=== PATIENT | male | born 1940 | race Caucasian/White ===

== ENCOUNTER 2018-03-31 17:15 | Emergency (ER) | payer OTHER ==
[2018-03-31 17:25] VITALS: TEMP 97.8
--- NOTE | 2018-03-31 17:50 | PDOC ---
Attending Attestation - Resident Resident Name: Marlin Jack - ED Attending Attestation I have performed the following: I have examined & evaluated the patient, The case was reviewed & discussed with the resident, I agree w/resident's findings & plan, Exceptions are as noted - HPI HPI: 04/01/18 09:49 Patient was begun on an alpha earl today by the [facility] for prostatic hypertrophy. He was not having any increase in urinary symptoms, but the medication was begun because the doctor felt his prostate was enlarging. After taking the medication, he experienced an episode of orthostatic hypotension, fell and struck head, no loss of consciousness. He is now asymptomatic. He denies headache, visual or focal neurologic symptoms, unsteadiness of gait. He denies chest pain shortness of breath abdominal pain nausea vomiting diarrhea dizziness or lightheadedness or vertigo. No syncope in the past. Additional factor was that the patient was using the bathroom at the time of this orthostatic episode. - Physicial Exam PE: 04/01/18 09:50 Physical exam: Alert and oriented well-developed well-nourished no acute distress cheerful and cooperative Afebrile vital signs normal Superficial contusion over the right forehead. No hematoma, depression, or other skull defect. PERRLA, fundi benign with sharp disc margins and good central venous pulsations. ENT clear Neck without tenderness or deformity, full range of motion without pain Chest clear with full breath sounds bilaterally, no rib cage or chest wall deformity or tenderness CV regular without murmur rub or gallop pulses full and symmetric no JVD or edema no bradycardia or tachycardia Abdomen soft nontender without mass or organomegaly. No CVAT No pelvic or spine deformity or tenderness Extremities no visible or palpable trauma Neurological C2 to 12 intact. Strength full and symmetric. No focal sensory or motor deficits. Cerebellum intact. Gait stable and unimpaired. - Medical Decision Making 04/01/18 09:52 Impression: Orthostatic hypotension, vasovagal syncope, probably due to initiation of alpha earl Plan: CT of the head and neck are negative. Patient's neurological status is intact. He will stop the medication and follow-up with his doctor. Fully ambulatory and in no distress upon discharge to follow-up as directed
[2018-03-31] MEDS ORDERED: SODIUM CHLORIDE 1,000 ML IV STA (18:03)
[2018-03-31 18:04] VITALS: BMI 27.8
--- NOTE | 2018-03-31 18:15 | PDOC ---
History of Present Illness - General Chief Complaint: Syncope/Near Syncope Stated Complaint: syncope Time Seen by Provider: 03/31/18 17:36 Past History - Past Medical History Allergies/Adverse Reactions: Allergies Allergy/AdvReac Type Severity Reaction Status Date / Time No Known Drug Allergies Allergy Verified 03/31/18 17:54 Home Medications: Ambulatory Orders Albuterol Sulfate [Proair Respiclick] 90 mcg IH PRN PRN 03/31/18 Aspirin 80 mg PO DAILY 03/31/18 Chlorthalidone 25 mg PO AM 03/31/18 Diphenhydramine HCl [Benadryl -] 0 mg PO PRN PRN 03/31/18 Lactase [Fast Acting Lactase] 9,000 unit PO ASDIR 03/31/18 Levothyroxine [Synthroid -] 175 mcg PO DAILY 03/31/18 Metoprolol Succinate [Toprol Xl] 25 mg PO DAILY 03/31/18 Omeprazole 20 mg PO BID 03/31/18 Simvastatin 10 mg PO HS 03/31/18 Tiotropium [place] [Spiriva] 18 mcg IH DAILY 03/31/18 Cardiac Disorders: Yes (CARDIO SPASM WITH HTN) COPD: Yes GI Disorders: Yes (GERD,HIATAL HERNIA,LACTOSE INTOLERANCE) Disorders: Yes (BPH) HTN: Yes Hypercholesterolemia: Yes Thyroid Disease: Yes (HYPO/GRAVES) Other medical history: HEARING LOSS - Surgical History Abdominal Surgery: (UMBILICAL HERNIA REPAIR,) Cholecystectomy: Yes - Suicide/Smoking/Psychosocial Hx Smoking History: Never smoked Hx Alcohol Use: No Drug/Substance Use Hx: No Substance Use Type: None *Physical Exam - Vital Signs Last Vital Signs Temp Pulse Resp BP Pulse Ox 97.8 F 85 18 96/65 96 03/31/18 17:15 03/31/18 17:15 03/31/18 17:15 03/31/18 17:15 03/31/18 17:15 Medical Decision Making - Medical Decision Making Pt was seen at bedside, also will be seen by attending Dr. Cullen. Pt presenting with PE showed [] Considering [vs vs] Providing 500 mL NS IVF for dehydration. Ordered work-up including non-contrast CT scan of head and C-spine. Pt denying pain control at this time. Will continue to reassess pt and monitor for symptomatic improvement. ECG showed NSR, 1st degree block, HR 76, NV 212, QRS 86. No ST segment changes or TWIs. No baseline ECG for comparison. 03/31/18 18:15 Pt repeat BP 108/81 after fluid intervention. Pt was able to ambulate in the department with no syncope or imbalance. Pt taken to CT scan. Pt signed out to next team. Explained presentation, ED course, any pending results, and needed interventions to resident Dr. Mcintosh, who will follow the results of the CT scan. 03/31/18 19:10 *DC/Admit/Observation/Transfer Diagnosis at time of Disposition: Syncope Qualifiers: Syncope type: unspecified Qualified Code(s): R55 - Syncope and collapse - Discharge Dispostion Disposition: HOME Condition at time of disposition: Good Decision to Admit order: No - Referrals - Patient Instructions Printed Discharge Instructions: DI for Syncope in Adults (Fainting) Additional Instructions: You were seen in the ER today after a syncopal episode. Please follow-up with your primary care doctor [and referral doctors] within 1-2 days to discuss your visit and make sure your symptoms have improved. Please return to the ER if you have any developing head pain, vision changes, confusion, development of fevers or chills, loss of consciousness, inability to tolerate food or fluids, or any other concerns. - Post Discharge Activity
[2018-03-31 19:52] VITALS: BP 99/56
--- NOTE | 2018-03-31 20:27 | PDOC ---
*Physical Exam - Vital Signs Last Vital Signs Temp Pulse Resp BP Pulse Ox 97.8 F 66 15 99/56 L 95 03/31/18 17:15 03/31/18 19:52 03/31/18 19:52 03/31/18 19:52 03/31/18 19:52 ED Treatment Course - Medications Given in the ED: ED Medications Discontinued Medications Generic Name Dose Route Start Last Admin Trade Name Nixonq PRN Reason Stop Dose Admin Sodium Chloride 1,000 mls @ 1,000 mls/hr 03/31/18 18:03 03/31/18 18:35 Normal Saline - IV 03/31/18 19:02 1,000 mls/hr ASDIR STA Administration Progress Note - Progress Note Progress Note: Care of this patient was transferred to [place] from Dr. Brady at 1900 hrs. Patient is a 77-year-old male who had a syncopal event and hit his head post taking an alpha earl for the first time. Patient was started on the alopha earl for an enlarged prostate. Patient had a complete workup including labs and head and neck CT. Patient's workup was unremarkable. Patient's blood pressure here in the emergency room was initially low however he was given a 500 mL fluid bolus and observed for several hours. Prior to discharge patient's blood pressure was 118 systolic after walking around the ED without any difficulty. Patient will follow-up with his primary care doctor. *DC/Admit/Observation/Transfer Diagnosis at time of Disposition: Syncope Qualifiers: Syncope type: unspecified Qualified Code(s): R55 - Syncope and collapse - Discharge Dispostion Disposition: HOME Condition at time of disposition: Good - Referrals - Patient Instructions Printed Discharge Instructions: DI for Syncope in Adults (Fainting) Additional Instructions: You were seen in the ER today after a syncopal episode. Please follow-up with your primary care doctor [and referral doctors] within 1-2 days to discuss your visit and make sure your symptoms have improved. Please return to the ER if you have any developing head pain, vision changes, confusion, development of fevers or chills, loss of consciousness, inability to tolerate food or fluids, or any other concerns. - Post Discharge Activity
[2018-03-31 20:28] VITALS: PULSE 65
--- NOTE | 2018-04-02 09:49 | EKG ---
Test Reason : Blood Pressure : / mmHG Vent. Rate : 076 BPM Atrial Rate : 076 BPM P-R Int : 212 ms QRS Dur : 086 ms QT Int : 396 ms P-R-T Axes : 044 028 017 degrees QTc Int : 445 ms SINUS RHYTHM WITH 1ST DEGREE A-V BLOCK NO PREVIOUS ECGS AVAILABLE Confirmed by YOVANA NEVES MD ([id number]) on 04/02/2018 9:49:19 AM Referred By: MD MORGAN Confirmed By:YOVANA NEVES MD
== END 2018-03-31 20:28 | disposition home or self-care (01) ==
LOC: FER 17:15
PROC: 3E0337Z Introduction of Electrolytic and Water Balance Substance into Peripheral Vein, Percutaneous Approach (ICD-10-PCS; principal; 2018-03-31)
DX: R55 Syncope and collapse (principal); I10 Essential (primary) hypertension; N40.0 Benign prostatic hyperplasia without lower urinary tract symptoms; E03.9 Hypothyroidism, unspecified; E05.00 Thyrotoxicosis with diffuse goiter without thyrotoxic crisis or storm
CPT/HCPCS: 70450-TC; 72125-TC; 93005; 99285-25; J7030